=== PATIENT | female | born 1945 | race Caucasian/White ===

== ENCOUNTER → 2018-12-21 | Outpatient (CLI) | payer MEDICARE, BC | LOC: MC.RAD 11:00 | DX: Z12.31 Encounter for screening mammogram for malignant neoplasm of breast (principal) ==

== ENCOUNTER → 2020-01-31 | Outpatient (CLI) | payer MEDICARE, BC | LOC: MC.RAD 13:15 | DX: Z12.31 Encounter for screening mammogram for malignant neoplasm of breast (principal) ==

== ENCOUNTER 2020-03-03 15:28 | Emergency (ER) | payer MEDICARE, BC ==
[~2020-03-03] VITALS: Ht 165.1 cm; Wt 90.9 kg
[2020-03-03 15:34] VITALS: BP 162/87; TEMP 96.9
[2020-03-03] MEDS ORDERED: CRESTOR5 MG PO (16:23)
[2020-03-03] MEDS ORDERED: COZAAR 50MG50 MG/TAB PO (16:24)
[2020-03-03] MEDS ORDERED: TIROSINT50 MC1 PO (16:24)
[2020-03-03] MEDS ORDERED: VITAMIN D250 MCG PO (16:25)
[2020-03-03] MEDS ORDERED: OMEGA-3 1000 MG1 CAP PO (16:25)
[2020-03-03] MEDS ORDERED: CALCIUM CARBON650 M2 (16:25)
[2020-03-03] MEDS ORDERED: DINO-LIFE1 CTB PO (16:26)
[2020-03-03 17:55] VITALS: PULSE 76
== END 2020-03-03 17:55 | disposition home or self-care (01) ==
LOC: COL.ER 15:28
DX: S52.572A Other intraarticular fracture of lower end of left radius, initial encounter for closed fracture (principal); S80.02XA Contusion of left knee, initial encounter; W10.9XXA Fall (on) (from) unspecified stairs and steps, initial encounter
CPT/HCPCS: Q4021

== ENCOUNTER → 2021-01-28 | Outpatient (CLI) | payer MEDICARE, BC ==
[~2021-01-28] MED LIST: CALCIUM CARBON650 M2; COZAAR 50MG50 MG/TAB PO; CRESTOR5 MG PO; DINO-LIFE1 CTB PO; OMEGA-3 1000 MG1 CAP PO; TIROSINT50 MC1 PO; VITAMIN D250 MCG PO
== END ==
LOC: MC.RAD 13:00
DX: Z12.31 Encounter for screening mammogram for malignant neoplasm of breast (principal)